=== PATIENT | female | born 1975 | race American Indian/Alaskan Native ===

== ENCOUNTER 2016-10-10 05:54 | Emergency (ER) | payer SELFPAY ==
[2016-10-10] MEDS ORDERED: MOTRIN PO ONE (06:23)
[2016-10-10] MEDS ORDERED: DECADRON IM ONE (06:23)
[2016-10-10 06:24] VITALS: BP 129/70
[2016-10-10] MEDS ORDERED: BICILLIN L-A IM ONE (07:41)
--- NOTE | 2016-10-10 07:52 | Emergency Department Report ---
HPI - General Chief Complaint: Sore Throat Time Seen by Provider: 10/10/16 07:25 - HPI HPI: Patient is a 41-year-old female who presents to ED with her significant other complaining of throat pain 3 days. Patient describes pain as throbbing in nature, 8 out of 10 intensity, nonradiating, localized to his throat. Admits pain with swallowing and eating. Patient admits no appetite due to throat pain. Patient admits feels live A throat is closing in due to swelling. Patient admits fever for the first 2 days but not at the moment. Patient denies nausea/vomiting/abdominal pain/shortness of breath/chest pain/ headachecough. Patient also complains of bilateral breast pimples and pain. Patient states she has not had a mammogram and she is 41. Patient states she will like a referral to get a mammogram. ED Past Medical Hx - Past Medical History Previous Medical History?: Yes Hx GERD: Yes Hx Asthma: Yes - Social History Smoking Status: Current Every Day Smoker Substance Use Type: Marijuana - Medications Home Medications: Home Medications Medication Instructions Recorded Confirmed Last Taken Type Ibuprofen [Motrin] 600 mg PO Q8H PRN #30 tablet 10/10/16 Unknown Rx ED Review of Systems ROS: Stated complaint: THROAT CLOSING Other details as noted in HPI Constitutional: malaise. denies: chills, fever Eyes: denies: eye pain, eye discharge, vision change ENT: throat pain, congestion. denies: ear pain, dental pain, hearing loss, epistaxis Respiratory: denies: cough, shortness of breath, wheezing Cardiovascular: denies: chest pain, palpitations Endocrine: no symptoms reported Gastrointestinal: denies: abdominal pain, nausea, vomiting, diarrhea Genitourinary: denies: urgency, dysuria, discharge Musculoskeletal: denies: back pain, joint swelling, arthralgia Skin: denies: rash, lesions Neurological: denies: headache, weakness, paresthesias Psychiatric: denies: anxiety, depression Hematological/Lymphatic: denies: easy bleeding, easy bruising Other: Complains of bilateral breasts tenderness intermittently throughout the day, denies nipple discharge discharge 2 years Physical Exam - Physical Exam Vital Signs: Vital Signs 10/10/16 10/10/16 06:12 06:30 Temperature 99.2 F Pulse Rate 82 Respiratory 18 20 Rate Blood Pressure 129/70 O2 Sat by Pulse 98 Oximetry Physical Exam: GENERAL: Alert and oriented x3, no apparent distress, Normal Gait, atraumatic. HEAD: Head is normocephalic and a-traumatic. EYES: Extra ocular muscles are intact. Pupils are equal, round, and reactive to light and accommodation. EARS: symetrical, atraumatic, non tender, ear canal clear and moderate cerumen, tympanic membrance non inflamed. gross auditory nml bilaterally. NOSE: Nose symetrical, Nontender,Nares appeared normal. MOUTH:Mouth is well hydrated and without lesions. Tonsils are erythematous and swollen, Uvula midline, Tongue mildly elevated. Mucous membranes are moist. Posterior pharynx clear, no exudate or lesions. Patent airways. NECK: Supple. Non edematous, No carotid bruits. No lymphadenopathy or thyromegaly. No C-spine tenderness LUNGS: Symetrical with respiration, No wheezing, no rales or crackles, CTAB. HEART: S1, S2 present, regular rate and rhythm without murmur, no rubs, no gallops. ABDOMEN: No organomegaly was noted,Positive bowel sounds, soft, and non- distended. . Nontender to palpation on all Quadrants, NO CVA tenderness. BREAST: Symetrical, Supple bilaterally, nontender to palpation bilaterally No Masses, small fibrocystic lumps present bilaterally, generalized healed lesions on lower breasts bilaterally. SKIN: Warm and dry, No lesions, No ulceration or induration present. ED Course Vital Signs 10/10/16 10/10/16 06:12 06:30 Temperature 99.2 F Pulse Rate 82 Respiratory 18 20 Rate Blood Pressure 129/70 O2 Sat by Pulse 98 Oximetry ED Medical Decision Making - Medical Decision Making 41-year-old female presents with strep pharyngitis. ED course: Rapid strep tests ordered rapid strep test positive Patient received 1 dose of motrin, 1.2 million units of penicillin, 10 mg of dexamethasone. Vital signs stable patient is in no acute or respiratory distress. Discussed findings with patient about the positive strep. Discussed treatment in ED with patient Discussed the patient that strep throat is contagious and to limit sharing spoons and such. Pt to be sent home on Motrin . Discussed with patient follow-up with primary care physician. Discussed referral for mammogram and gynecology Patient verbally states she understands and will comply to follow-up. Critical care attestation.: If time is entered above; I have spent that time in minutes in the direct care of this critically ill patient, excluding procedure time. ED Disposition Clinical Impression: Streptococcal sore throat Pharyngitis Qualifiers: Pharyngitis/tonsillitis etiology: streptococcus Qualified Code(s): J02.0 - Streptococcal pharyngitis Disposition: DISCHARGED TO HOME OR SELFCARE Is pt being admited?: No Does the pt Need Aspirin: No Condition: Stable Instructions: Tonsillitis (ED), Strep Throat (ED), Mammogram (ED), Breast Self- exam (ED) Additional Instructions: Take medications as prescribed Follow-up as discussed Prescriptions: Ibuprofen [Motrin] 600 mg PO Q8H PRN #30 tablet PRN Reason: Pain Referrals: PRIMARY CAREMD [Primary Care Provider] - 3-5 Days DILIA MARS MD [Referring] - 3-5 Days [facility] [Outside] - 3-5 Days [facility] [Outside] - 3-5 Days [facility] [Outside] - 3-[address] [facility] [Outside] - 3-5 Days Forms: Accompanied Note, Work/School Release Form(ED) Time of Disposition: 07:59
== END 2016-10-10 08:23 | disposition home or self-care (01) ==
LOC: ED 05:54
DX: J02.0 Streptococcal pharyngitis (principal); K21.9 Gastro-esophageal reflux disease without esophagitis; J45.909 Unspecified asthma, uncomplicated; F17.200 Nicotine dependence, unspecified, uncomplicated; F12.90 Cannabis use, unspecified, uncomplicated
CPT/HCPCS: 87430; 96372; 99282; J0561; J1100

== ENCOUNTER 2016-10-20 19:08 | Emergency (ER) | payer SELFPAY ==
[2016-10-20] MEDS ORDERED: TORADOL IV ONE (21:16)
[2016-10-20] MEDS ORDERED: DECADRON IV ONE (21:16)
[2016-10-20] MEDS ORDERED: NACL 0.9% 1000 ML 1,000 ML IV ONE (21:16)
--- NOTE | 2016-10-20 21:17 | Emergency Department Report ---
ED ENT HPI - General Chief complaint: Upper Respiratory Infection Stated complaint: EAR/THROAT PAIN Time Seen by Provider: 10/20/16 21:00 Source: patient Mode of arrival: Ambulatory Limitations: No Limitations - History of Present Illness Initial comments: 41-year-old female past medical history asthma, GERD, recurrent tonsillitis presents with complaint of sore throat worsening for several days. Patient speaking in full sentences denies any nausea or vomiting. Subjective body aches. MD complaint: sore throat Onset/Timin -: week(s) Severity: moderate Severity scale (0 -10): 6 Quality: aching Consistency: constant Improves with: none Worsens with: swallowing Associated Symptoms: sore throat - Related Data Previous Rx's Medication Instructions Recorded Last Taken Type Ibuprofen [Motrin] 600 mg PO Q8H PRN #30 tablet 10/10/16 Unknown Rx Benzocaine/Menthol [Cepacol Sore 1 each MM Q4H PRN #18 lozenge 10/21/16 Unknown Rx Throat Lozenge] Clindamycin [Clindamycin CAP] 300 mg PO Q6H #28 capsule 10/21/16 Unknown Rx Naproxen [Naprosyn TAB] 500 mg PO BID PRN #25 tablet 10/21/16 Unknown Rx Allergies Allergy/AdvReac Type Severity Reaction Status Date / Time No Known Allergies Allergy Unverified 10/10/16 06:10 ED Dental HPI - General Chief complaint: Upper Respiratory Infection Stated complaint: EAR/THROAT PAIN Time Seen by Provider: 10/20/16 21:00 Source: patient Mode of arrival: Ambulatory Limitations: No Limitations - Related Data Previous Rx's Medication Instructions Recorded Last Taken Type Ibuprofen [Motrin] 600 mg PO Q8H PRN #30 tablet 10/10/16 Unknown Rx Benzocaine/Menthol [Cepacol Sore 1 each MM Q4H PRN #18 lozenge 10/21/16 Unknown Rx Throat Lozenge] Clindamycin [Clindamycin CAP] 300 mg PO Q6H #28 capsule 10/21/16 Unknown Rx Naproxen [Naprosyn TAB] 500 mg PO BID PRN #25 tablet 10/21/16 Unknown Rx Allergies Allergy/AdvReac Type Severity Reaction Status Date / Time No Known Allergies Allergy Unverified 10/10/16 06:10 ED Review of Systems ROS: Stated complaint: EAR/THROAT PAIN Other details as noted in HPI Constitutional: denies: chills, fever Eyes: denies: eye pain, eye discharge, vision change ENT: throat pain. denies: ear pain Respiratory: denies: cough, shortness of breath, wheezing Cardiovascular: denies: chest pain, palpitations Endocrine: no symptoms reported Gastrointestinal: denies: abdominal pain, nausea, diarrhea Genitourinary: denies: urgency, dysuria, discharge Musculoskeletal: denies: back pain, joint swelling, arthralgia Skin: denies: rash, lesions Neurological: denies: headache, weakness, paresthesias Psychiatric: denies: anxiety, depression Hematological/Lymphatic: denies: easy bleeding, easy bruising ED Past Medical Hx - Past Medical History Previous Medical History?: Yes Hx GERD: Yes Hx Asthma: Yes Additional medical history: TONSILITIS/ STREPT - Surgical History Past Surgical History?: Yes Additional Surgical History: TUBAL LIGATION / CYST REMOVAL - Social History Smoking Status: Current Every Day Smoker Substance Use Type: Marijuana - Medications Home Medications: Home Medications Medication Instructions Recorded Confirmed Last Taken Type Ibuprofen [Motrin] 600 mg PO Q8H PRN #30 tablet 10/10/16 Unknown Rx Benzocaine/Menthol [Cepacol Sore 1 each MM Q4H PRN #18 lozenge 10/21/16 Unknown Rx Throat Lozenge] Clindamycin [Clindamycin CAP] 300 mg PO Q6H #28 capsule 10/21/16 Unknown Rx Naproxen [Naprosyn TAB] 500 mg PO BID PRN #25 tablet 10/21/16 Unknown Rx ED Physical Exam - General Limitations: No Limitations General appearance: alert, in no apparent distress - Head Head exam: Present: atraumatic, normocephalic - Eye Eye exam: Present: normal appearance, PERRL, EOMI - ENT ENT exam: Present: mucous membranes moist - Expanded ENT Exam Expanded Throat exam: Positive: tonsillar erythema (mild tonsillar exudates and erythema worse on right), tonsillar exudate, other (uvula midline but swelling in right tonsillar pillar possible [facility]) - Neck Neck exam: Present: normal inspection, full ROM - Respiratory Respiratory exam: Present: normal lung sounds bilaterally. Absent: respiratory distress - Cardiovascular Cardiovascular Exam: Present: regular rate, normal rhythm. Absent: systolic murmur, diastolic murmur, rubs, gallop - GI/Abdominal GI/Abdominal exam: Present: soft, normal bowel sounds - Extremities Exam Extremities exam: Present: normal inspection - Back Exam Back exam: Present: normal inspection - Neurological Exam Neurological exam: Present: alert, oriented X3, CN II-XII intact - Psychiatric Psychiatric exam: Present: normal affect, normal mood - Skin Skin exam: Present: warm, dry, intact, normal color. Absent: rash ED Course Vital Signs 10/20/16 20:08 Temperature 99.3 F Pulse Rate 53 L Respiratory 18 Rate Blood Pressure 156/99 O2 Sat by Pulse 100 Oximetry ED Medical Decision Making - Lab Data Result diagrams: 10/20/16 21:26 10/20/16 21:26 - Medical Decision Making A/P: Tonsillitis, incidental mass in throat 1-case discussed with Dr. Fonseca 2- patient referred to ENT. I informed patient of incidental finding of small 1.5 cm mass on neck CT. Patient has no signs of respiratory distress no wheezing or stridor denies any difficulty breathing speaking in full sentences. I advised her to follow up for potential biopsy of this small mass did patient 's present for conversation, they stated that they would follow-up. 3- clindamycin IV 600 given in ED, give 1 week dose of clindamycin 300 mg 4 times a day 4- naproxen when necessary, throat lozenges 5- I advised patient to return to the ED for worsening throat pain and inability to tolerate by mouth any persistent nausea or vomiting any shortness of breath or any pus drainage from mouth. 6- patient requested follow-up with primary care provided her with information for [place] and other outpatient primary care facilities. Critical care attestation.: If time is entered above; I have spent that time in minutes in the direct care of this critically ill patient, excluding procedure time. ED Disposition Clinical Impression: Tonsillitis Disposition: DISCHARGED TO HOME OR SELFCARE Is pt being admited?: No Does the pt Need Aspirin: No Condition: Stable Instructions: Tonsillitis (ED) Prescriptions: Benzocaine/Menthol [Cepacol Sore Throat Lozenge] 1 each MM Q4H PRN #18 lozenge PRN Reason: Sore Throat Clindamycin [Clindamycin CAP] 300 mg PO Q6H #28 capsule Naproxen [Naprosyn TAB] 500 mg PO BID PRN #25 tablet PRN Reason: Sore Throat Referrals: [facility] [Provider Group] - [facility] [Provider Group] - 3-5 Days [facility] [Provider Group] - 3-5 Days [facility] [Provider Group] - 3-5 Days [facility] [Outside] - 3-5 Days Forms: Accompanied Note, Work/School Release Form(ED) Time of Disposition: 00:59
[2016-10-20 21:33] LABS: Basophils % (Auto) 0.3 % (0.0-1.8); Eosinophils % (Auto) 1.4 % (0.0-4.3); Hematocrit 34.6 % (30.3-42.9); Hemoglobin 11.5 gm/dl (10.1-14.3); Mean Corpuscular HGB Conc 33 % (30-34); Mean Corpuscular Hemoglobin 29 pg (28-32); Mean Corpuscular Volume 87 fl (79-97); Platelet Count 241 K/mm3 (140-440); Red Blood Count 3.98 M/mm3 (3.65-5.03); Red Cell Distribution Width 14.7 % (13.2-15.2); White Blood Count 9.3 K/mm3 (4.5-11.0)
[2016-10-20 22:51] LABS: Anion Gap 15 mmol/L; Blood Urea Nitrogen 9 mg/dL (7-17); Calcium 8.7 mg/dL (8.4-10.2); Carbon Dioxide 24 mmol/L (22-30); Chloride 100.6 mmol/L (98-107); Glucose 86 mg/dL (65-100); Potassium 3.7 mmol/L (3.6-5.0); Sodium 136 mmol/L (137-145)
[2016-10-20] MEDS ORDERED: NACL ONE (23:23)
--- NOTE | 2016-10-21 00:36 | Cat Scan Report ---
FINAL REPORT PROCEDURE: CT NECK W CON TECHNIQUE: Computerized axial tomography of the soft tissue neck was performed following the IV injection of iodinated nonionic contrast. HISTORY: ? right sided [employer] COMPARISON: No prior studies are available for comparison. FINDINGS: The thyroid gland, the larynx, the submandibular glands and parotid glands are unremarkable. The parapharyngeal spaces are symmetric. There is asymmetry visualized in the region of the piriform sinuses. The left side appears occluded secondary to soft tissue prominence. There is a soft tissue density measuring 1.6 x 1.7 centimeters seen on axial image 48 series 3. This may be due to inflammation. I cannot exclude a mass. Direct visualization may be helpful for further evaluation. The epiglottis is unremarkable. The tonsils are mildly prominent although appear symmetric. No enhancement abnormality is seen that would suggest an abscess. IMPRESSION: Asymmetric appearance piriform sinuses as described. The left piriform sinus appears occluded. This could be due to inflammation or mass. Direct visualization may be helpful for further evaluation.
[2016-10-21 01:13] VITALS: BP 127/86
== END 2016-10-21 01:32 | disposition home or self-care (01) ==
LOC: ED 19:08
DX: J03.90 Acute tonsillitis, unspecified (principal); K21.9 Gastro-esophageal reflux disease without esophagitis; J45.909 Unspecified asthma, uncomplicated; F17.200 Nicotine dependence, unspecified, uncomplicated; F12.90 Cannabis use, unspecified, uncomplicated
CPT/HCPCS: 36415; 70491; 80048; 84703; 85025; 87430; 96361; 96374; 96375; 99284; J1100; J1885; J7030; Q9967

== ENCOUNTER 2021-02-14 13:17 | Emergency (ER) | payer OTHER, SELFPAY ==
[2021-02-14] MEDS ORDERED: LORazepam 2 MG/ML VIAL ONE (13:22)
[2021-02-14] MEDS ORDERED: HALOPERIDOL LACTATE 5 MG/1 ML INJ ONE (13:22)
[2021-02-14] MEDS ORDERED: LORazepam 2 MG/ML VIAL IM PRN (13:29)
[2021-02-14] MEDS ORDERED: HALOPERIDOL LACTATE 5 MG/1 ML INJ IM PRN (13:29)
--- NOTE | 2021-02-14 13:29 | Emergency Department Report ---
ED General Adult HPI - General Chief complaint: Psych Stated complaint: mitra contreras, who the fuck are you PUI?: No Time Seen by Provider: 02/14/21 13:28 Source: patient, family, EMS (Verbal report received from emergency medical services. EMS documentation not available at time of chart dictation ), RN notes reviewed, old records reviewed Mode of arrival: Stretcher Limitations: Other (Acute psychosis) - History of Present Illness Initial comments: The patient was evaluated in the emergency department for symptoms described in the history of present illness. He/she was evaluated in the context of the global COVID-19 pandemic, which necessitated consideration that the patient might be at risk for infection with the virus that causes COVID-19. Institutional protocols and algorithms that pertain to the evaluation of tim ents at risk for COVID-19 are in a state of rapid change based on information released by regulatory bodies including the CDC and federal and state organizations. These policies and algorithms were followed during the patient's care in the emergency department. Please note that these policies, procedures and recommendations changed on a rapid basis. The patient is a 46-year-old female. She presents to the ER with EMS with a complaint of psychiatric distress. The patient is acutely psychotic. She states "Mitra Contreras, who the Fuck are you?" She also states "get this nier away from me.' EMS tells me that the patient called 911 because of psychiatric complaints. They report the patient was psychotic in the field and refused vital signs. They reported that the patient was ambulatory. Called up the patient's daughter, Ms. Rosa Maynard; [phone] for collateral information. She states this patient had a psychotic break in 2018, and was reportedly running out into the street naked, talking nonsensically, and is very concerned about "giving people the evil eye." The patient had a psychiatric hospitalization at that time, but she does not know the patient has an existing diagnosis. She does report that the patient consumes marijuana, and tobacco. She reports no fever, trauma, nausea, vomiting, diarrhea. She further reports that a family member recently , and the patient's daughter is concerned that this may have incited or worsened the patient's underlying symptoms. The patient herself is acutely psychotic. She is not able to describe the qualitative nature of her symptoms, exacerbating factors, relieving factors or aggravating factors. Review of system is obtained by speaking to the patient's daughter. The patient's daughter further denies that the patient has Covid symptoms, but she does report that the patient is not COVID-19 vaccinated. -: days(s) Quality: other Consistency: other Improves with: other Worsens with: other Associated Symptoms: other - Related Data Previous Rx's Medication Instructions Recorded Last Taken Type Ibuprofen [Motrin] 600 mg PO Q8H PRN #30 tablet 10/10/16 Unknown Rx Benzocaine/Menthol [Cepacol Sore 1 each MM Q4H PRN #18 lozenge 10/21/16 Unknown Rx Throat Lozenge] Clindamycin [Clindamycin CAP] 300 mg PO Q6H #28 capsule 10/21/16 Unknown Rx Naproxen [Naprosyn TAB] 500 mg PO BID PRN #25 tablet 10/21/16 Unknown Rx Sertraline [Zoloft] 25 mg PO QDAY #30 tab 02/15/21 Unknown Rx Allergies Allergy/AdvReac Type Severity Reaction Status Date / Time No Known Allergies Allergy Unverified 10/10/16 06:10 ED Review of Systems ROS: Stated complaint: MH EVAL Other details as noted in HPI Comment: Unobtainable due to pts medical conditions ED Past Medical Hx - Past Medical History Hx GERD: Yes Hx Asthma: Yes Additional medical history: TONSILITIS/ STREPT - Surgical History Additional Surgical History: TUBAL LIGATION / CYST REMOVAL - Social History Smoking Status: Current Every Day Smoker Substance Use Type: Marijuana - Medications Home Medications: Home Medications Medication Instructions Recorded Confirmed Last Taken Type Ibuprofen [Motrin] 600 mg PO Q8H PRN #30 tablet 10/10/16 Unknown Rx Benzocaine/Menthol [Cepacol Sore 1 each MM Q4H PRN #18 lozenge 10/21/16 Unknown Rx Throat Lozenge] Clindamycin [Clindamycin CAP] 300 mg PO Q6H #28 capsule 10/21/16 Unknown Rx Naproxen [Naprosyn TAB] 500 mg PO BID PRN #25 tablet 10/21/16 Unknown Rx Sertraline [Zoloft] 25 mg PO QDAY #30 tab 02/15/21 Unknown Rx ED Physical Exam - General Limitations: Other (The patient is psychotic) General appearance: anxious, obese - Head Head exam: Present: atraumatic, normocephalic - Eye Eye exam: Present: normal appearance, PERRL, EOMI. Absent: nystagmus - ENT ENT exam: Present: normal exam, normal orophraynx, mucous membranes moist, normal external ear exam - Neck Neck exam: Present: normal inspection, full ROM. Absent: tenderness, meningismus - Respiratory Respiratory exam: Present: normal lung sounds bilaterally. Absent: respiratory distress, wheezes, rales, rhonchi, stridor, accessory muscle use, decreased breath sounds - Cardiovascular Cardiovascular Exam: Present: normal rhythm, tachycardia, normal heart sounds. Absent: bradycardia, irregular rhythm, systolic murmur, diastolic murmur, rubs, gallop - GI/Abdominal GI/Abdominal exam: Present: soft. Absent: distended, tenderness, guarding, rebound, rigid, pulsatile mass - Extremities Exam Extremities exam: Present: normal inspection, full ROM, other (2+ pulses noted in the bilateral upper and lower extremities. There is no palpable cord. negative Homans sign. Muscular compartments are soft. The pelvis is stable.). Absent: pedal edema, calf tenderness - Back Exam Back exam: Present: normal inspection. Absent: tenderness, CVA tenderness (R), CVA tenderness (L), paraspinal tenderness, vertebral tenderness - Neurological Exam Neurological exam: Present: other (There is no facial droop. The tongue is midline. 5 out of 5 strength in 4 extremities) - Psychiatric Psychiatric exam: Present: agitated, anxious - Skin Skin exam: Present: warm, dry, intact, normal color. Absent: rash ED Course Vital Signs 02/14/21 02/14/21 02/14/21 13:40 13:47 15:35 Temperature 98.5 F Pulse Rate 112 H 72 Respiratory 22 15 Rate Blood Pressure 121/70 [Left] O2 Sat by Pulse 97 97 98 Oximetry 02/14/21 02/15/21 20:15 07:39 Temperature 98.6 F 97.8 F Pulse Rate 58 L 63 Respiratory 18 20 Rate Blood Pressure 115/61 110/80 [Left] O2 Sat by Pulse 98 100 Oximetry - Reevaluation(s) Reevaluation #1: 02/14/21 13:45 Differential diagnosis, including the not limited to: Psychosis, medical clearance for psychiatric placement Assessment and plan: 46-year-old female status post recent of a very close family member, who consumes tobacco, marijuana, and as per family, has been acting bizarrely, strangely for the past few days. As per family, this patient appears to have had a psychotic break in 2018. Place patient on 1013. Obtain vital signs, appropriate laboratory studies and Covid swab. Obtain psychiatric consultation. I discussed this plan of care with the patient's daughter who articulated understanding. The patient herself is acutely psychotic, and lacks decision- making capacity. 02/14/21 17:36 Tachycardia resolved. Vital signs normalized. Laboratory studies unremarkable. Potassium supplementation ordered. Urinalysis pending. Formal psychiatric consultation is pending. At this point in time, this patient does not appear to have an immediate medical contraindication to psychiatric admission, evaluation, consultation and plac ement. In the emergency room we will continue to follow along on a daily basis as the psychiatry team makes her recommendations. In addition, we will follow up on her urinalysis when it is provided ED Medical Decision Making - Lab Data Result diagrams: 02/14/21 16:37 02/14/21 16:37 Vital Signs 02/14/21 02/14/21 02/14/21 13:40 13:47 15:35 Temperature 98.5 F Pulse Rate 112 H 72 Respiratory 22 15 Rate Blood Pressure 121/70 [Left] O2 Sat by Pulse 97 97 98 Oximetry Lab Results 02/14/21 02/14/21 02/14/21 Range/Units 16:37 16:37 16:37 WBC (4.5-11.0) K/mm3 RBC (3.65-5.03) M/mm3 Hgb (10.1-14.3) gm/dl Hct (30.3-42.9) % MCV (79-97) fl MCH (28-32) pg MCHC (30-34) % RDW (13.2-15.2) % Plt Count (140-440) K/mm3 Sodium 139 (137-145) mmol/L Potassium 3.4 L (3.6-5.0) mmol/L Chloride 104.4 (98-107) mmol/L Carbon Dioxide 21 L (22-30) mmol/L Anion Gap 17 mmol/L BUN 9 (7-17) mg/dL Creatinine 0.9 (0.6-1.2) mg/dL Estimated GFR > 60 ml/min BUN/Creatinine Ratio 10 % Glucose 91 (65-100) mg/dL Calcium 9.4 (8.4-10.2) mg/dL Magnesium (1.7-2.3) mg/dL TSH 1.320 (0.270-4.200) mlU/mL HCG, Qual (Negative) Salicylates < 0.3 L (2.8-20.0) mg/dL Acetaminophen (10.0-30.0) ug/mL Plasma/Serum Alcohol (0-0.07) % 02/14/21 02/14/21 02/14/21 Range/Units 16:37 16:37 16:37 WBC (4.5-11.0) K/mm3 RBC (3.65-5.03) M/mm3 Hgb (10.1-14.3) gm/dl Hct (30.3-42.9) % MCV (79-97) fl MCH (28-32) pg MCHC (30-34) % RDW (13.2-15.2) % Plt Count (140-440) K/mm3 Sodium (137-145) mmol/L Potassium (3.6-5.0) mmol/L Chloride (98-107) mmol/L Carbon Dioxide (22-30) mmol/L Anion Gap mmol/L BUN (7-17) mg/dL Creatinine (0.6-1.2) mg/dL Estimated GFR ml/min BUN/Creatinine Ratio % Glucose (65-100) mg/dL Calcium (8.4-10.2) mg/dL Magnesium (1.7-2.3) mg/dL TSH (0.270-4.200) mlU/mL HCG, Qual Negative (Negative) Salicylates (2.8-20.0) mg/dL Acetaminophen 5.0 L (10.0-30.0) ug/mL Plasma/Serum Alcohol < 0.01 (0-0.07) % 02/14/21 02/14/21 Range/Units 16:37 16:37 WBC 5.9 (4.5-11.0) K/mm3 RBC 4.18 (3.65-5.03) M/mm3 Hgb 12.7 (10.1-14.3) gm/dl Hct 37.5 (30.3-42.9) % MCV 90 (79-97) fl MCH 30 (28-32) pg MCHC 34 (30-34) % RDW 14.3 (13.2-15.2) % Plt Count 263 (140-440) K/mm3 Sodium (137-145) mmol/L Potassium (3.6-5.0) mmol/L Chloride (98-107) mmol/L Carbon Dioxide (22-30) mmol/L Anion Gap mmol/L BUN (7-17) mg/dL Creatinine (0.6-1.2) mg/dL Estimated GFR ml/min BUN/Creatinine Ratio % Glucose (65-100) mg/dL Calcium (8.4-10.2) mg/dL Magnesium 2.30 (1.7-2.3) mg/dL TSH (0.270-4.200) mlU/mL HCG, Qual (Negative) Salicylates (2.8-20.0) mg/dL Acetaminophen (10.0-30.0) ug/mL Plasma/Serum Alcohol (0-0.07) % Critical care attestation.: If time is entered above; I have spent that time in minutes in the direct care of this critically ill patient, excluding procedure time. ED Disposition Clinical Impression: Depression Disposition: 01 HOME / SELF CARE / HOMELESS Is pt being admited?: No Does the pt Need Aspirin: No Condition: Good Instructions: Major Depressive Disorder, Adult Additional Instructions: Take the medication as prescribed. Follow-up with your doctor or doctor/clinic provided. Return if symptoms worsen as indicated by your discharge instructions. Professional and Agency Contacts To help [facility](09/01) [place] Crisis Line: Suicide Prevention Line: Crisis Text Line: Text START to 955443 Emergency: 911 Outpatient COMMUNITY Behavioral Health Resources: [place]: [facility] [address] [place], [place] [address] [place]: [facility] - [address] [place] [address] [place]: [facility] [address] [place] [address] Monday thru Monday - 8am - 5pm [place] ALBERTO: [facility] Address: [address], [place] [address] [place]: [facility] Address: [address], [place], [place] Monday thru Monday- 7am-2pm [facility] Address: [address], [place] [address] Monday thru Monday: 8:30AM-5PM Prescriptions: Sertraline [Zoloft] 25 mg PO QDAY #30 tab Referrals: [facility] [Provider Group] - 3-5 Days [facility]IMARY [facility], [Primary Care Provider] - 3-5 Days
[2021-02-14 16:54] LABS: Hematocrit 37.5 % (30.3-42.9); Hemoglobin 12.7 gm/dl (10.1-14.3); Mean Corpuscular HGB Conc 34 % (30-34); Mean Corpuscular Volume 90 fl (79-97); Platelet Count 263 K/mm3 (140-440); Red Blood Count 4.18 M/mm3 (3.65-5.03); Red Cell Distribution Width 14.3 % (13.2-15.2)
[2021-02-14 17:11] LABS: BUN/Creatinine Ratio 10; Blood Urea Nitrogen 9 mg/dL (7-17); Calcium 9.4 mg/dL (8.4-10.2); Hemolysis Index 5
[2021-02-14] MEDS ORDERED: diphenhydrAMINE 25 MG CAP PO PRN (17:35)
[2021-02-14] MEDS ORDERED: ACETAMINOPHEN 325 MG TAB PO PRN (17:35)
[2021-02-14] MEDS: POTASSIUM CHLORIDE ER 20 MEQ TAB PO SCH (19:18)
[2021-02-15 07:40] VITALS: BP 110/80
[2021-02-15 07:46] LABS: Bilirubin,Urine SM (Negative); Blood,Urine MOD (Negative); Calcium Oxalate Crystals,Urine 1+; Color,Urine Amber (Yellow); Mucus,Urine 3+ /HPF
[2021-02-15 07:51] LABS: Amphetamine Screen,Urine Negative; Benzodiazepines Screen,Urine Negative; Cocaine Screen,Urine Negative; Methadone Screen,Urine Negative; Opiate Screen,Urine Negative
[2021-02-15 08:23] LABS: Cannabinoid Screen,Urine Positive
[2021-02-15 08:42] LABS: Ictotest,Urine Negative (Negative)
--- NOTE | 2021-02-15 10:45 | Emergency Department Report ---
Blank Doc - Documentation Documentation: SOAP note Subjective: 46-year-old female presents to the hospital with agitation and psychosis. Required IM medication yesterday Objective: No physical complaints currently. No events overnight. Currently denies suicidal and homicidal ideation. Vital signs normal this morning Vital Signs - 24 hr 02/14/21 02/14/21 02/14/21 13:40 13:47 15:35 Temperature 98.5 F Pulse Rate 112 H 72 Respiratory 22 15 Rate Blood Pressure 121/70 [Left] O2 Sat by Pulse 97 97 98 Oximetry 02/14/21 02/15/21 20:15 07:39 Temperature 98.6 F 97.8 F Pulse Rate 58 L 63 Respiratory 18 20 Rate Blood Pressure 115/61 110/80 [Left] O2 Sat by Pulse 98 100 Oximetry Assessment: Patient is currently on a 1013. Acute psychosis and agitation. Plan: Continue 1013. Continue as needed meds. Awaiting mental health e valuation for assessment and placement
--- NOTE | 2021-02-15 11:14 | Consultation ---
History of Present Illness - Reason for Consult Consult date: 02/15/21 Reason for consult: psychosis - History of Present Psychiatric Illness Melody Walton is a 46y/o female patient who presented to the ER with psychosis. During my evaluation of the patient today, she is calm, cooperative, polite. She is lucid. She says she was brought in the the ambulance. She says "I was just afraid of being a long. She says my mom just passed." The patient says "the cracking and settling of the house was just making me uneasy." She says "but I feel better today." She says her mom " of breast cancer and has been suffering with it for about 7 years." She says "I'm not crying because she's gone because I know she is better off. She's not suffering." She says "I just miss her." The patient says at one point she was seeing a therapist. She says "but she stopped seeing me and I don't really know why." She says she saw a psychiatrist years ago but doesn't remember her diagnoses. She denies being on any psych medications. The patient denies SI/HI. She says "no not now or in the past." She also denies hallucinations of any kind. I discussed with the patient the need for therapy and possibly an antidepressant. She agrees with the plan. She says "I don't have insurance but I would really like to see someone and start medication." She denies any illicit drug use outside of THC. Psych History Diagnoses: could not recall Suicide attempts or Self-harm behavior: Denies Prior psychiatric hospitalizations: Denies Substance Abuse history: Denies Previous psychiatric medications tried: Denies Outpatient treatment: Denies PAST MEDICAL HISTORY: none reported Family Psychiatric History: None reported or documented SOCIAL HISTORY Marital Status: Living Arrangements: alone Employment Status: Disabled Access to guns/weapons: Denies Education: History of Abuse: none reported Legal History: none reported REVIEW OF SYSTEMS Constitutional: Negative for weight loss ENT: Negative for stridor Respiratory: Negative for cough or hemoptysis All other systems reviewed and are negative MENTAL STATUS EXAMINATION General Appearance and Behavior: Age appropriate, good hygiene, wearing appropriate clothes, awake, calm and cooperative Cooperation: Participating but drowsy Psychomotor Behavior: unremarkable and within normal limits Mood: "better" Affect and affective range: congruent with mood Thought Process: goal directed Thought Content: Denies Speech: Normal volume, Regular rate and rhythm, Suicidal Ideation: Denies Homicidal Ideation: Denies Hallucinations: Denies Delusions: None elicited Impulse Control: Unimpaired Insight and Judgment: Limited insight and judgment, Memory: Normal, Attention: Normal Orientation: Alert, oriented Assessment and Plan (1) Major Depressive Disorder Treatment Plan d/c 1013 Zoloft 25mg po daily The patient to comply with previously prescribed medications Risks, benefits and alternatives of medications discussed with the patient, questions answered and consent obtained from patient. PSYCHOTHERAPY: Supportive psychotherapy provided MEDICAL: Per primary team DELIRIUM PRECAUTIONS: Please re-orient patient frequently, keep lights on during the day, and minimize benzodiazepines and opiates as these medications could worsen patient's confusion. END TRIMMER: Defer to primary DISPOSITION: Do not recommend acute psychiatric inpatient treatment. She understands to seek immediate assistance if SI/HI are to arise. The uptwist spinner to further discuss safety plan The uptwist spinner to give the patient resources to establish outpatient psych for med management and CBT The patient to follow up in 7 to 14 days with outpatient psych upon discharge Thank you for the consult. Please contact with any questions and/or concerns. Case staffed with Dr. Pena Medications and Allergies Allergies Allergy/AdvReac Type Severity Reaction Status Date / Time No Known Allergies Allergy Unverified 10/10/16 06:10 Home Medications Medication Instructions Recorded Confirmed Last Taken Type Ibuprofen [Motrin] 600 mg PO Q8H PRN #30 tablet 10/10/16 Unknown Rx Benzocaine/Menthol [Cepacol Sore 1 each MM Q4H PRN #18 lozenge 10/21/16 Unknown Rx Throat Lozenge] Clindamycin [Clindamycin CAP] 300 mg PO Q6H #28 capsule 10/21/16 Unknown Rx Naproxen [Naprosyn TAB] 500 mg PO BID PRN #25 tablet 10/21/16 Unknown Rx Sertraline [Zoloft] 25 mg PO QDAY #30 tab 02/15/21 Unknown Rx Active Meds: Active Medications Acetaminophen (Acetaminophen 325 Mg Tab) 650 mg PO Q6HR PRN PRN Reason: PAIN Diphenhydramine HCl (Diphenhydramine 25 Mg Cap) 50 mg PO QHS PRN PRN Reason: Insomnia Haloperidol Lactate (Haloperidol Lactate 5 Mg/1 Ml Inj) 5 mg IM Q6HR PRN PRN Reason: Agitation Last Admin: 02/14/21 13:45 Dose: 5 mg Documented by: Lorazepam (Lorazepam 2 Mg/Ml Vial) 2 mg IM Q4HR PRN PRN Reason: Agitation Last Admin: 02/14/21 13:45 Dose: 2 mg Documented by: Potassium Chloride (Potassium Chloride Er 20 Meq Tab) 40 meq PO QDAY JAYA Last Admin: 02/14/21 19:18 Dose: Not Given Documented by: Mental Status Exam - Vital signs Last Vital Signs Temp 97.8 F 02/15/21 07:39 Pulse 63 02/15/21 07:39 Resp 20 02/15/21 07:39 BP 110/80 02/15/21 07:39 Pulse Ox 100 02/15/21 07:39 Results Result Diagrams: 02/14/21 16:37 02/14/21 16:37 Abnormal lab results 02/14/21 02/14/21 02/14/21 Range/Units 16:37 16:37 16:37 Potassium 3.4 L (3.6-5.0) mmol/L Carbon Dioxide 21 L (22-30) mmol/L Ur Specific Sasser (1.003-1.030) Urine WBC (Auto) (0.0-6.0) /HPF U Epithel Cells (Auto) (0-13.0) /HPF Salicylates < 0.3 L (2.8-20.0) mg/dL Acetaminophen 5.0 L (10.0-30.0) ug/mL 02/15/21 Range/Units Unknown Potassium (3.6-5.0) mmol/L Carbon Dioxide (22-30) mmol/L Ur Specific Sasser 1.031 H (1.003-1.030) Urine WBC (Auto) 16.0 H (0.0-6.0) /HPF U Epithel Cells (Auto) 25.0 H (0-13.0) /HPF Salicylates (2.8-20.0) mg/dL Acetaminophen (10.0-30.0) ug/mL All other labs normal.
--- NOTE | 2021-02-15 11:44 | Emergency Department Report ---
Blank Doc - Documentation Documentation: 46-year-old female presents to the hospital with psychosis. In ED less than 24 hours. Received Haldol initially Objective: No events overnight. Patient calm and cooperative. No complaints. Denies psychosis, suicidal, homicidal. Vital signs normal range Vital Signs - 24 hr 02/14/21 02/14/21 02/14/21 13:40 13:47 15:35 Temperature 98.5 F Pulse Rate 112 H 72 Respiratory 22 15 Rate Blood Pressure 121/70 [Left] O2 Sat by Pulse 97 97 98 Oximetry 02/14/21 02/15/21 20:15 07:39 Temperature 98.6 F 97.8 F Pulse Rate 58 L 63 Respiratory 18 20 Rate Blood Pressure 115/61 110/80 [Left] O2 Sat by Pulse 98 100 Oximetry Assessment: Patient evaluated by mental health. Diagnosis of major depressive disorder. No recommendation for inpatient therapy at this time. 1013 discontinue Plan: Discharge with outpatient psychiatric follow-up and outpatient Zoloft
[2021-02-15] MEDS: POTASSIUM CHLORIDE ER 20 MEQ TAB PO SCH (11:53)
== END 2021-02-15 13:03 | disposition home or self-care (01) ==
LOC: ED 13:17
DX: F32.9 Major depressive disorder, single episode, unspecified (principal); F17.200 Nicotine dependence, unspecified, uncomplicated; K21.9 Gastro-esophageal reflux disease without esophagitis; J45.909 Unspecified asthma, uncomplicated; F12.90 Cannabis use, unspecified, uncomplicated; Z20.822 Contact with and (suspected) exposure to COVID-19; Z98.890 Other specified postprocedural states; Z98.51 Tubal ligation status; Z79.899 Other long term (current) drug therapy
CPT/HCPCS: 36415; 80048; 80307; 81001; 83735; 84443; 84703; 85027; 87076; 87086; 87186; 96372; 99284; J1630; J2060; U0003; 80320; G0480

== ENCOUNTER 2022-01-08 02:26 | Emergency (ER) | payer SELFPAY ==
[2022-01-08 03:37] VITALS: BP 121/83
== END 2022-01-08 08:50 | disposition left against medical advice (07) ==
LOC: ED 02:26
DX: R06.02 Shortness of breath (principal); Z53.21 Procedure and treatment not carried out due to patient leaving prior to being seen by health care provider